=== PATIENT | male | born 1995 | race Caucasian/White ===

== ENCOUNTER 2023-11-06 09:59 | Day surgery (SDC) | payer OTHER, SELFPAY ==
[2023-11-05 07:47] VITALS: BMI 27.1
[2023-11-06] MEDS: LACTATED RINGERS 1,000 ML 42 ML IV ×2 (10:15→10:32)
[2023-11-06 10:20] VITALS: BP 141/87; PULSE 97; RESP 14; TEMP 36.6; O2SAT 97; BMI 27.1
[2023-11-06] MEDS: OXYMETAZOLINE NASAL SPRAY 30 ML 2 SPRAYS NASAL ×2 (10:50→11:55)
--- NOTE | 2023-11-06 11:11 | PM.PREOP ---
Pre-operative Note Interval Note History & Physical reviewed/Exam performed by Physician: Yes Changes to H&P: No
--- NOTE | 2023-11-06 11:11 | PM.HP.1 ---
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 No interval health changes since last visit, no recent cough cold or fever, wishes to proceed. [facility] Medical History Respiratory obstruction Nasal turbinate hypertrophy Nasal septal deviation Nasal obstruction Seasonal allergic rhinitis Surgical History No history of previous surgery Social History household members: significant other Smoking Status: Never smoker alcohol intake: current Meds Home Medications and Allergies Home Medications Medication Instructions Recorded Confirmed Type No Known Home Medications 11/05/23 11/05/23 History Allergies Allergy/AdvReac Type Severity Reaction Status Date / Time No Known Drug Allergies Allergy Verified 11/06/23 10:19 Review of Systems Review of Systems Narrative: Negative except as listed in the HPI Exam Vital Signs (past 8 hours): - 11/06/23 10:20 Temperature 98 F Pulse Rate 97 H Respiratory Rate 14 Blood Pressure 141/87 H Pulse Oximetry 97 Oxygen Delivery Method Room Air Oxygen Delivery Method Room Air Narrative Exam Narrative: Well-developed well-nourished, heart regular rate and rhythm without murmur, lungs clear to auscultation bilaterally Assessment & Plan Assessment & Plan narrative: Assessment: Nasal airway obstruction, septal deviation, inferior turbinate hypertrophy Plan: Following discussion of the material risks benefits complications and alternatives, the patient elected to proceed.
--- NOTE | 2023-11-06 11:13 | PM.OP.1 ---
Operative Date/Time/Diagnoses Date of procedure: 11/06/23 Time of procedure: 12:50 Pre-op diagnosis: Nasal airway obstruction, septal deviation, inferior turbinate hypertrophy Post-op diagnosis: same Procedure & Clinicians Procedure: 1. Septoplasty 2. Bilateral inferior turbinate reduction via intramural cautery Same procedure as scheduled: Yes Indications: 28 Year old with the above diagnoses incompletely managed with medical therapy presents for the above procedure. Following discussion of the material risks benefits complications and alternatives, the patient elected to proceed. Surgeon: Kendell Landaverde Click Yes if Unassisted: Yes Anesthesia Type: General and Local Operative Notes Findings: 2-3+ left anterior septal deviation, RIGHT low spur extending posteriorly. LEFT flap perforation low-mid septum, free cartilage replaced in that area within the envelope and sutured in place. RIGHT flap intact. [id number]-left MILD inferior turbinate hypertrophy Estimated Blood Loss (mL): 50 Procedure in detail: Following identification and confirmation of consent as well as preoperative Afrin nasal spray, the patient was brought to the operating room suite and placed in the supine position. General endotracheal anesthesia was administered. I infiltrated the septum widely bilaterally with 1% lidocaine 1 100,000 epinephrine followed by temporary packing with cotton with Afrin and 4% lidocaine. Following sterile prep and drape, the packing was removed and I performed a right tsah-transfixion incision, elevated the right mucoperichondrial and mucoperiosteal flap. I disarticulated near the bony/cartilaginous junction and elevated the left mucoperiosteal flap. Deviated portions of the perpendicular plate of the ethmoid and vomer were resected. The residual quadrilateral cartilage was further straightened by trimming it inferiorly as well as reducing the maxillary crest. A 2 mm strip of cartilage paralleling the residual 1 cm dorsal and partial caudal strut was resected to further straighten the quadrilateral cartilage. A 5mm piece of previously resected straight cartilage was replaced in the septal envelope in the area of the LEFT flap perforation and sutured in place. The hemitransfixion incision was closed with interrupted 5 0 chromic followed by a running 4 0 plain gut mattress suture to reapproximate the septal flaps. At case completion, 20/1000th of an inch silastic splints were placed bilaterally, sutured anteriorly with a single 4 0 nylon. The head of each inferior turbinate had been previously infiltrated with additional local anesthetic and a 23 gauge spinal needle was used to impale the length of the turbinate, with cautery on a setting of 15 activated on slow withdrawal over 2 passes. The turbinates were then outfractured. The procedure completed, sponge and needle counts were correct and the patient was extubated in the operating room and taken to recovery room in stable condition without known complication. Postoperative care: Nasal saline every hour while awake, Vaseline or Polysporin to the nostrils at all times, begin irrigations t.i.d. beginning pod 1. Humidifier at the bedside blowing on the face. Tylenol alternating with Advil for pain control, oxycodone if necessary for breakthrough pain. Complications: none Post-operative Condition: stable Disposition: same day surgery Plan for aftercare: Nasal saline every hour while awake, begin irrigations t.i.d. tomorrow if desired. Polysporin to the nostrils at all times, Tylenol alternating with Advil for pain control, oxycodone for breakthrough pain. Elevate head of bed, no nose blowing, no straining for 2 weeks. Ice directly under the nose on the upper lip has tolerated 24-48 hours at a minimum. Follow-up in 1 week for nasal splint removal.
[2023-11-06] MEDS: ACETAMINOPHEN IV 1,000 MG/100 ML VIAL 400 MG IV (11:45)
--- NOTE | 2023-11-06 11:53 | SUR.OPER ---
Supine on padded OR bed, head on gel donut, arms padded and tucked at sides, legs uncrossed, safety belt at thigh, tape over blanket over lower legs .
[2023-11-06] MEDS: LIDOCAINE 1% W/EPI 20 ML INJ (11:56)
[2023-11-06] MEDS: LIDOCAINE 4% SOLN 50 ML 20 ML TOP (11:56)
[2023-11-06] MEDS: BACITRACIN OINT 0.9 GM PCKT 1 APPLIC TOP (12:01)
[2023-11-06 12:56] VITALS: BP 124/87; PULSE 87; RESP 12; TEMP 36.3; O2SAT 99
[2023-11-06 13:01] VITALS: BP 132/76; PULSE 100; RESP 12; O2SAT 99
[2023-11-06 13:06] VITALS: BP 130/76; PULSE 85; RESP 12; O2SAT 100
[2023-11-06 13:11] VITALS: BP 124/86; PULSE 78; RESP 12; O2SAT 99
[2023-11-06 13:23] VITALS: BP 133/85; PULSE 82; RESP 12; O2SAT 98
== END 2023-11-06 13:40 | disposition home or self-care (01) ==
PROVIDERS: Referring Provider Otolaryngology; Visit Provider Otolaryngology
PROC: (CPT 30520; principal; 2023-11-06 11:15)
DX: J34.2 Deviated nasal septum (principal); J34.3 Hypertrophy of nasal turbinates; J34.89 Other specified disorders of nose and nasal sinuses
CPT/HCPCS: 30520; 30802; J0136; J1100; J1170; J2405; J2704